=== PATIENT | female | born 1980 | race Caucasian/White ===

== ENCOUNTER 2023-09-19 13:30 | Emergency (ER) | payer BC ==
[~2023-09-19] VITALS: Ht 162.6 cm; Wt 67.6 kg
[2023-09-19 14:25] VITALS: BP 109/69; PULSE 102; RESP 20; TEMP 98.2; O2SAT 99
[2023-09-19 15:35] VITALS: BP 110/72; PULSE 99; RESP 20; TEMP 98.1; O2SAT 99
[2023-09-19] MEDS ORDERED: BROM118S70 PO (16:00)
[2023-09-19] MEDS ORDERED: IBUP-2213 PO (16:00)
[2023-09-19] MEDS ORDERED: PROM118S5 PO (16:19)
== END 2023-09-19 16:28 | disposition home or self-care (01) ==
LOC: MED 13:30
DX: J06.9 Acute upper respiratory infection, unspecified (principal); Z79.899 Other long term (current) drug therapy
CPT/HCPCS: 71045; 81025; 99284